=== PATIENT | male | born 1985 ===

== ENCOUNTER 2024-08-09 06:34 | Day surgery (SDC) | payer OTHER ==
[2024-08-07 09:22] VITALS: BP 135/89
[2024-08-07 09:42] LABS: BASO % 0.7 % (0.1-1.2); EOS # 0.18 (0.04-0.54); EOS % 3.1 % (0.7-7.0); HEMATOCRIT 44.1 % (40.1-51.0); HEMOGLOBIN 16.2 g/dL (13.7-17.5); LYMPH # 2.41 (1.18-3.74); LYMPH % 41.5 % (19.3-53.1); MEAN CORPUSCULAR HEMOGLOBIN 31.2 pg (25.6-32.2); MONO # 0.37 (0.24-0.82); MONO % 6.4 % (4.7-12.5); NEUT # 2.79 (1.56-6.13); PLATELET COUNT 142 K/uL (163-369); RED BLOOD COUNT 5.19 M/uL (4.63-6.08); RED CELL DISTRIBUTION WIDTH 11.8 % (11.6-14.4)
[2024-08-07 10:00] LABS: PH,URINE 5.5 (5.0-8.0); URINE APPEARANCE Clear; URINE BILIRRUBIN Negative (NEGATIVE); URINE BLOOD Negative; URINE COLOR Yellow; URINE KETONE Trace (NEGATIVE); URINE LEUKOCYTE Negative; URINE NITRATE Negative; URINE PROTEIN Negative (NEGATIVE); URINE UROBILINOGEN 0.2 E.U./dl
[2024-08-07 10:03] LABS: URINE WBC 2.8 uL (0.0-23.2)
[2024-08-07 10:05] LABS: INR 1.22; PARTIAL THROMBOPLASTIN TIME 25.4 SECONDS (22.0-34.0); PROTHROMBIN TIME 13.1 SECONDS (9.0-11.5)
[2024-08-07 10:31] LABS: URINE BACTERIA 2.4 uL (0.0-1933); URINE EPITHELIAL CELLS 0.6 uL (0.0-38.8); URINE GLUCOSE >=1000 MG/DL (NEGATIVE); URINE RBC 1.7 uL (0.0-20.8)
[2024-08-07 10:44] LABS: ALBUMIN 3.9 gm/dL (3.4-5.0); BILIRUBIN TOTAL 0.86 mg/dL (0.3-1.2); CALCIUM 9.6 mg/dL (8.5-10.1); CREATININE SERUM 0.8 mg/dL (0.70-1.30); GFR 108.19; GLOBULINA 3.3 G/DL (2.4-3.5); POTASSIUM 4.39 mEq/L (3.5-5.1); TOTAL PROTEIN 7.2 gm/dL (6.4-8.2)
[~2024-08-09] VITALS: Ht 185.4 cm; Wt 93.0 kg
[~2024-08-09 06:34] MED LIST: LOSARTAN POTASS50 MG PO; METFORMIN HCL1000 M2
[2024-08-09] MEDS ORDERED: CEFAZOLIN SODIUM 1,000 MG VIAL ONE (10:42)
[2024-08-09] MEDS ORDERED: LIDOCAINE HCL 1%/EPINEPHRINE 20ML VIAL IJ ONE ×2 (11:49→12:15)
[2024-08-09] MEDS ORDERED: BUPIVACAINE HCL/MPF 0.5% 30ML VIAL ONE (11:49)
[2024-08-09] MEDS ORDERED: KETOROLAC TROMETHAMINE 30 MG VIAL ONE (11:49)
[2024-08-09] MEDS ORDERED: BUPIVACAINE HCL 30 ML VIAL IJ ONE (12:15)
[2024-08-09] MEDS ORDERED: ISOPROPYL ALCOHOL 30 ML OUNCE TOP ONE (12:15)
[2024-08-09] MEDS ORDERED: KETOROLAC TROMETHAMINE 30 MG VIAL IV ONE (12:15)
[2024-08-09] MEDS ORDERED: KETOROLAC TROMETHAMINE 30 MG VIAL IM ONE (12:15)
[2024-08-09] MEDS ORDERED: CEFAZOLIN SODIUM 1,000 MG VIAL IV ONE (12:15)
[2024-08-09] MEDS ORDERED: MORPHINE SULFATE 4 MG/ML VIAL IV ONE (14:10)
== END 2024-08-09 16:50 | disposition home or self-care (01) ==
LOC: CIR.AMB 06:34
PROVIDERS: ATTEND Orthopaedic Surgery
DX: S46.312A Strain of muscle, fascia and tendon of triceps, left arm, initial encounter (principal); M70.22 Olecranon bursitis, left elbow

== ENCOUNTER → 2024-08-09 06:51 | Outpatient (CLI) | payer OTHER ==
[2024-08-09 07:39] LABS: CALCIUM 9.4 mg/dL (8.5-10.1); CREATININE SERUM 0.83 mg/dL (0.70-1.30); GFR 103.69; POTASSIUM 3.83 mEq/L (3.5-5.1)
== END | disposition home or self-care (01) ==
LOC: LAB 06:51
PROVIDERS: ATTEND Internal Medicine
DX: E11.9 Type 2 diabetes mellitus without complications (principal)